=== PATIENT | female | born 1990 | race Caucasian/White ===

== ENCOUNTER → 2016-12-28 | Outpatient (CLI) | payer OTHER ==
[~2016-12-28] MED LIST: PRENTAB26 PO
[2016-12-28 18:21] LABS: BASO % 0.2 %; BASO ABS # 0.02 K/uL (0-0.2); COMPLETE YES; EOS % 1.3 %; HEMATOCRIT 41.2 % (37-47); IG% 0.2 %; LYMPH ABS # 2.86 K/uL (1.2-3.4); MEAN CELL VOLUME 88.2 fL (80-100); MEAN CORPUSCULAR HEMOGLOBIN 30.8 pg (25-34); MEAN PLATELET VOLUME 10.7 fL (7.4-10.4); NEUT % 62.3 %; PLATELET COUNT 248 K/uL (130-400); RED BLOOD COUNT 4.67 M/uL (4.2-5.4); WHITE BLOOD COUNT 9.86 K/uL (4.8-10.8)
[2016-12-28 19:23] LABS: URINE APPEARANCE CLEAR (CLEAR); URINE BILIRUBIN NEG (NEG); URINE COLOR YELLOW; URINE EPITHELIAL CELL AUTO >30 /lpf (0-5); URINE NITRITE NEG (NEG); UROBILINOGEN NEG (NEG)
[2016-12-28 19:24] LABS: MANUAL MICROSCOPIC REQUIRED? NO; REVIEW REQ? NO
[2017-01-06 15:59] LABS: CHLAMYDIA TRACH RNA*** NOT DETECTED (NOT DETECTED); GC (NEIS GONORRHOEAE)RNA** NOT DETECTED (NOT DETECTED)
== END ==
LOC: C.LAB 17:38
PROVIDERS: ATTEND Obstetrics & Gynecology
DX: Z34.81 Encounter for supervision of other normal pregnancy, first trimester (principal)

== ENCOUNTER → 2016-12-28 | Outpatient (CLI) | payer OTHER | LOC: C.PAPS 08:39 | PROVIDERS: ATTEND Obstetrics & Gynecology | DX: Z12.4 Encounter for screening for malignant neoplasm of cervix (principal) ==

== ENCOUNTER → 2017-02-24 | Outpatient (CLI) | payer OTHER ==
[2017-02-24 17:07] LABS: PATIENT HEIGHT 162.6 cm
[2017-02-24 17:14] LABS: GLUCOLA DOSE 50 Grams
[2017-02-24 18:44] LABS: GTGD 50 Grams
[2017-02-24 22:55] LABS: CREATININE 0.53 mg/dl (0.6-1.2)
== END | disposition home or self-care (01) ==
LOC: C.LAB1850 16:50
PROVIDERS: ATTEND Obstetrics & Gynecology
DX: Z34.82 Encounter for supervision of other normal pregnancy, second trimester (principal); Z87.59 Personal history of other complications of pregnancy, childbirth and the puerperium

== ENCOUNTER → 2017-03-01 | Outpatient (CLI) | payer OTHER | END | disposition home or self-care (01) | LOC: C.LAB1850 07:30 | PROVIDERS: ATTEND Obstetrics & Gynecology | DX: O28.9 Unspecified abnormal findings on antenatal screening of mother (principal) ==

== ENCOUNTER → 2017-05-17 | Outpatient (CLI) | payer OTHER ==
[2017-05-17 09:37] LABS: HEMATOCRIT 40.4 % (37-47)
[2017-05-17 12:48] LABS: URINE APPEARANCE CLEAR (CLEAR); URINE BILIRUBIN NEG (NEG); URINE COLOR YELLOW; URINE EPITHELIAL CELL AUTO >30 /lpf (0-5); URINE NITRITE NEG (NEG); URINE PH 6.5 (4.5-7.5); URINE SPECIFIC GRAVITY 1.013 (1.000-1.030); UROBILINOGEN NEG (NEG)
[2017-05-17 12:54] LABS: MANUAL MICROSCOPIC REQUIRED? NO; REVIEW REQ? NO
== END | disposition home or self-care (01) ==
LOC: C.LAB1850 07:33
PROVIDERS: ATTEND Obstetrics & Gynecology
DX: Z34.83 Encounter for supervision of other normal pregnancy, third trimester (principal)

== ENCOUNTER → 2017-05-31 | Outpatient (CLI) | payer OTHER ==
[2017-05-31 18:42] LABS: URINE APPEARANCE CLEAR (CLEAR); URINE BILIRUBIN NEG (NEG); URINE COLOR YELLOW; URINE EPITHELIAL CELL AUTO 20-30 /lpf (0-5); URINE NITRITE POS (NEG); URINE SPECIFIC GRAVITY 1.015 (1.000-1.030); UROBILINOGEN NEG (NEG)
[2017-05-31 18:48] LABS: MANUAL MICROSCOPIC REQUIRED? NO; REVIEW REQ? NO
== END | disposition home or self-care (01) ==
LOC: C.LABSPEC 17:31
PROVIDERS: ATTEND Obstetrics & Gynecology
DX: Z34.82 Encounter for supervision of other normal pregnancy, second trimester (principal)

== ENCOUNTER → 2017-06-09 | Outpatient (CLI) | payer OTHER ==
[2017-06-09 11:28] LABS: URINE APPEARANCE CLOUDY (CLEAR); URINE BILIRUBIN NEG (NEG); URINE COLOR YELLOW; URINE EPITHELIAL CELL AUTO >30 /lpf (0-5); URINE NITRITE NEG (NEG); URINE PH 8.5 (4.5-7.5); URINE SPECIFIC GRAVITY 1.016 (1.000-1.030); UROBILINOGEN NEG (NEG)
[2017-06-09 11:34] LABS: MANUAL MICROSCOPIC REQUIRED? NO; REVIEW REQ? YES
== END | disposition home or self-care (01) ==
LOC: C.LABSPEC 11:08
PROVIDERS: ATTEND Obstetrics & Gynecology
DX: Z34.83 Encounter for supervision of other normal pregnancy, third trimester (principal); B37.2 Candidiasis of skin and nail

== ENCOUNTER → 2017-06-16 | Outpatient (CLI) | payer OTHER ==
[2017-06-16 11:41] LABS: URINE APPEARANCE CLEAR (CLEAR); URINE BILIRUBIN NEG (NEG); URINE COLOR YELLOW; URINE EPITHELIAL CELL AUTO >30 /lpf (0-5); URINE NITRITE NEG (NEG); URINE PH 7.5 (4.5-7.5); URINE SPECIFIC GRAVITY 1.014 (1.000-1.030); UROBILINOGEN NEG (NEG)
[2017-06-16 11:45] LABS: MANUAL MICROSCOPIC REQUIRED? NO; REVIEW REQ? NO
== END | disposition home or self-care (01) ==
LOC: C.LABSPEC 11:06
PROVIDERS: ATTEND Obstetrics & Gynecology
DX: Z34.83 Encounter for supervision of other normal pregnancy, third trimester (principal)

== ENCOUNTER → 2017-07-14 | Outpatient (CLI) | payer OTHER | END | disposition home or self-care (01) | LOC: C.LABSPEC 09:44 | PROVIDERS: ATTEND Obstetrics & Gynecology | DX: Z34.83 Encounter for supervision of other normal pregnancy, third trimester (principal) ==

== ENCOUNTER → 2017-07-22 | Outpatient (CLI) | payer OTHER ==
[2017-07-22 12:09] LABS: BASO % 0.1 %; BASO ABS # 0.01 K/uL (0-0.2); COMPLETE YES; EOS % 0.6 %; HEMATOCRIT 39.4 % (37-47); IG% 0.3 %; LYMPH % 21.3 %; LYMPH ABS # 1.84 K/uL (1.2-3.4); MEAN CELL VOLUME 86.4 fL (80-100); MEAN CORPUSCULAR HEMOGLOBIN 28.7 pg (25-34); MEAN CORPUSCULAR HGB CONC 33.2 g/dl (32-36); MEAN PLATELET VOLUME 12.7 fL (7.4-10.4); MONO % 9.3 %; NEUT % 68.4 %; PLATELET COUNT 183 K/uL (130-400); RED BLOOD COUNT 4.56 M/uL (4.2-5.4); WHITE BLOOD COUNT 8.63 K/uL (4.8-10.8)
[2017-07-22 12:14] LABS: URINE TOTAL PROTEIN 9.3 mg/dl (0-11.9)
[2017-07-22 12:21] LABS: ALT/SGPT 22 U/L (12-78); AST/SGOT 27 U/L (15-37); CREATININE 0.57 mg/dl (0.60-1.20); URIC ACID 7.6 mg/dl (2.6-7.2)
== END | disposition home or self-care (01) ==
LOC: C.LAB1850 10:05
PROVIDERS: ATTEND Obstetrics & Gynecology
DX: Z87.59 Personal history of other complications of pregnancy, childbirth and the puerperium (principal)

== ENCOUNTER 2017-08-09 23:09 | Inpatient (IN) | payer OTHER ==
[~2017-08-09] VITALS: Ht 162.6 cm; Wt 116.4 kg
[2017-08-10] MEDS ORDERED: LACTATED RINGER'S 1000ML 1,000 ML IV PRN (00:09)
[2017-08-10] MEDS ORDERED: LACTATED RINGER'S 1000ML 500 ML IV PRN ×2 (00:09→02:26)
[2017-08-10] MEDS ORDERED: OXYTOCIN 30 UNITS/500ML NSS IV PRN ×2 (00:15→07:45)
[2017-08-10 00:32] LABS: HEMATOCRIT 37.9 % (37-47); MEAN CELL VOLUME 85.6 fL (80-100); MEAN CORPUSCULAR HEMOGLOBIN 30.2 pg (25-34); MEAN CORPUSCULAR HGB CONC 35.4 g/dl (32-36); MEAN PLATELET VOLUME 12.2 fL (7.4-10.4); PLATELET COUNT 169 K/uL (130-400); RED BLOOD COUNT 4.43 M/uL (4.2-5.4); WHITE BLOOD COUNT 10.31 K/uL (4.8-10.8)
[2017-08-10 00:47] VITALS: Ht 162.6 cm; Wt 116.4 kg
[2017-08-10 01:30] LABS: ALT/SGPT 19 U/L (12-78); AST/SGOT 21 U/L (15-37); BLOOD UREA NITROGEN 10 mg/dl (7-18); CALCIUM 8.6 mg/dl (8.5-10.1); CARBON DIOXIDE 22 mmol/L (21-32); CHLORIDE 106 mmol/L (98-107); CREATININE 0.54 mg/dl (0.60-1.20); GLUCOSE 83 mg/dl (70-99); SODIUM 137 mmol/L (136-145)
[2017-08-10 01:33] LABS: ALB/GLOB RATIO 0.7 (0.9-2); ALKALINE PHOSPHATASE 237 U/L (45-117)
[2017-08-10] MEDS ORDERED: BUPIVACAINE 0.25% 30 ML VIAL ONE (01:41)
[2017-08-10] MEDS ORDERED: EpHEDrine SULFATE INJ 50 MG/ML AMP ONE (01:42)
[2017-08-10] MEDS ORDERED: FENTANYL CITRATE INJ 50 MCG/1 ML 2 ML VIAL ONE (01:42)
[2017-08-10] MEDS ORDERED: FENTANYL 2MCG/ML ROPIV 1.25MG/ML 100ML BAG EPI ONE (01:42)
[2017-08-10] MEDS: LACTATED RINGER'S 1000ML 1,000 ML IV SCH ×2 (02:21→06:16)
[2017-08-10] MEDS ORDERED: NALOXONE HCL INJ 1 MG in SODIUM CHLORIDE 0.9% 1000ML 1,000 ML IV PRN (02:26)
[2017-08-10] MEDS ORDERED: DiphenhydrAMINE HCL 50 MG/ML VIAL IV PRN (02:30)
[2017-08-10] MEDS ORDERED: FENTANYL 2MCG/ML ROPIV 1.25MG/ML 100ML BAG EPI PRN (02:30)
[2017-08-10] MEDS ORDERED: NALBUPHINE HCL INJ 10 MG/ML AMP IV PRN (02:30)
[2017-08-10] MEDS ORDERED: ONDANSETRON INJ 2 MG/ML 2 ML VIAL IV PRN (02:30)
[2017-08-10] MEDS ORDERED: EpHEDrine SULFATE INJ 50 MG/ML AMP IV PRN (02:30)
[2017-08-10] MEDS ORDERED: NALOXONE HCL INJ 0.4 MG/1 ML VIAL/CARP IV PRN (02:30)
--- NOTE | 2017-08-10 07:44 | Medical Student: [facility] ---
Medical Student Delivery Note Pre-op Dx: Term IUP at 40-5, spontaneous onset of labor Post-op Dx: Same Procedure: epidural, Pitocin augmentation, Surgeon: Dr. Albarado Anesthesia: epidural EBL: 250cc Procedure: Pt is a [id number] who presented to labor and delivery in active labor at 40-4. She underwent epidural anesthesia and Pitocin augmentation. Pt progressed to 8/100/-2. The second stage of labor continued for a total of 10min until the delivery of a viable male infant in an occiput anterior position. There was no nuchal cord. The posterior shoulder was delivered and then the rest of the infant was delivered without difficulty. The nose and mouth were bulb suctioned. The was placed on the maternal abdomen and the cord was clamped and cut. Cord blood sample was collected. The placenta was delivered S/I/3VC. Fundus was firm and lochia was minimal. Mother and infant were doing well at the end of the delivery. Apgars 8/9.
[2017-08-10] MEDS ORDERED: HYDROCORTISONE ACETATE 25 MG SUPP PR PRN (07:45)
[2017-08-10] MEDS ORDERED: ACETAMINOPHEN/CODEINE 300/30MG TAB PO PRN (07:45)
[2017-08-10] MEDS ORDERED: LANOLIN OINT EXT PRN ×2 (07:45)
[2017-08-10] MEDS ORDERED: SUPERCREAM 0.870 % 15GM JAR EXT PRN (07:45)
--- NOTE | 2017-08-10 08:11 | DELIVERY SUMMARY ---
DATE OF OPERATION: 08/10/2017 PREDELIVERY DIAGNOSES: 1. A 27-year-old G2, P1-0-0-1 at 40 weeks 5 days. 2. Spontaneous rupture of membranes. 3. History of gestational hypertension in prior . POSTDELIVERY DIAGNOSES: 1. A 27-year-old G2, P1-0-0-1 at 40 weeks 5 days. 2. Spontaneous rupture of membranes. 3. History of gestational hypertension in prior . PROCEDURE: Spontaneous vaginal delivery. ANESTHESIA: Epidural. ESTIMATED BLOOD LOSS: 300 mL. FINDINGS: Viable male , Apgars 8 and 9, weight pending. Please see nursery records. DESCRIPTION OF DELIVERY: The patient progressed to complete with epidural anesthesia. She progressed quickly from 8 to 9 cm and then quickly progressed again from 8 cm to complete. During this time, heart rate showed moderate variability with accelerations and early decelerations. There were 2 episodes where heart rate dropped into the 90s and then it was difficulty to trace baby, however this heart rate did come back to baseline and at this point, the patient was complete, so we began to push. She then spontaneously vaginally delivered a viable male from the cephalic presentation with the head in right occiput anterior position. The head delivered, the anterior shoulder did not deliver immediately so we placed the patient in McRobert's position. At this point, the posterior shoulder was already delivering and the anterior shoulder delivered spontaneously. The body delivered, the baby was placed on mother's abdomen. The cord was doubly clamped and cut using delayed cord clamping technique. A spontaneous cry was heard. The cord segment was retained in the event that we needed cord gases. The placenta was then delivered spontaneously intact with a 3-vessel cord. The uterus became firm. Pitocin was given. The uterus and vagina were swept of all clots and debris. The cervix, vagina and perineum were inspected and no lacerations were noted. Excellent hemostasis was observed. The mother and baby tolerated delivery well and are in the room recovering in stable and good condition. Instrument and sponge counts were correct x2 at the conclusion of this delivery. I attest to the content of the Intraoperative Record and any orders documented therein. Any exception s are noted below.
[2017-08-10] MEDS ORDERED: BUTORPHANOL TARTRATE 1 MG/ML VIAL ONE (09:52)
[2017-08-10] MEDS ORDERED: CARBOPROST TROMETHAMINE 250 MCG/ML AMP ONE (10:04)
[2017-08-10] MEDS ORDERED: MISOPROSTOL 200 MCG TAB ONE (10:11)
[2017-08-10] MEDS ORDERED: MISOPROSTOL 100 MCG TAB PR SCH (10:15)
--- NOTE | 2017-08-10 10:16 | Progress Note ---
Progress Note Date of Service Aug 10, 2017. Progress Note CTSP due to heavy vaginal bleeding. Patient a few hours into recovery from , no tears now with what nurse notes as heavy vaginal bleeding. Patient notes was up to shower and has seen a continual flow of blood. She came back to bed and soaked several chux by time I was called. Looking at perineum, there was adherent clot and bright red blood. Patient positioned for bedside exam in lithotomy. Inspection of perineum, vaginal and sulci with no evidence of tears. Clot teased away from os and ring forcep to anterior lip. More clot noted at JANELL and then ring forcep removed and hand placed in vagina into uterine cavity which was well contracted at fundus but JANELL easily entered and about 50cc clotted blood removed. No evidence of retained POCs. Uterus swept once more with no further clot or products. 800mcg rectal cytotec given. IV already infusing with dilute pitocin. 2nd iv site requested. Weighing of blood loss requested. T&S initiated. Pulse about 90-105 but nursing unable to get BP cuff working and therefore with remaining trickle and no data on BP, T&C initiated, CBC ordered stat. Patient informed of layla on and circumstances. She did not tolerate exploration at bedside and stadol 1mg offered and given. Fundus was always firm about [address] that way through the evaluation. Vaginal and cx visualized on 2 separate occasions subsequent to initial exploration and no significant increased bleeding seen. 200cc EBL on chux during my evaluation, 300cc EBL for delivery per delivering MD and 300 estimated from chux prior to my arrival for total 800cc EBL thus far. Will continue to monitor closely. Labs pending.
--- NOTE | 2017-08-10 10:26 | Anesthesia Procedure Note ---
Anesthesia Epidural Removal Nt Date & Time Aug 10, 2017 at 10:25 Vital Signs Pain Intensity: 2 Notes Mental Status: alert / awake / arousable, participated in evaluation Nausea / Vomiting: adequately controlled Pain: adequately controlled Airway Patency, RR, SpO2: stable & adequate BP & HR: stable & adequate Hydration State: stable & adequate Neuraxial Anesthesia: was administered Anesthetic Complications: no major complications apparent, pt satisfied with anesthetic care Epidural: removed without complications, with tip intact
[2017-08-10 10:43] LABS: HEMATOCRIT 39.3 % (37-47); MEAN CELL VOLUME 85.6 fL (80-100); MEAN CORPUSCULAR HEMOGLOBIN 28.8 pg (25-34); MEAN CORPUSCULAR HGB CONC 33.6 g/dl (32-36); PLATELET COUNT 115 K/uL (130-400); RED BLOOD COUNT 4.59 M/uL (4.2-5.4); WHITE BLOOD COUNT 14.67 K/uL (4.8-10.8)
[2017-08-10 10:44] LABS: PLT ESTIMATE DECREASED
[2017-08-10] MEDS: IBUPROFEN 600 MG TAB PO PRN ×3 (11:33→19:56)
[2017-08-10] MEDS ORDERED: OXYTOCIN INJ 20 UNITS in LACTATED RINGER'S 1000ML 1,000 ML IV SCH (12:00)
[2017-08-10 13:15] VITALS: BP 142/90; PULSE 95; TEMP 36.4; O2SAT 98
[2017-08-10] MEDS: PRENATAL VITAMIN TAB PO SCH (14:36)
[2017-08-10] MEDS: FERROUS SULFATE 325 MG TAB PO SCH (14:36)
[2017-08-10] MEDS: DOCUSATE SODIUM 100 MG CAP PO SCH ×2 (14:36→19:56)
[2017-08-10 15:30] VITALS: BP 141/90; PULSE 89; TEMP 36.6
[2017-08-10 19:00] VITALS: BP 128/84; PULSE 93; TEMP 36.8
[2017-08-10] MEDS: ACETAMINOPHEN/CODEINE 300/30MG TAB PO PRN (21:04)
[2017-08-10 23:55] VITALS: BP 128/89; PULSE 89; TEMP 36.7
[2017-08-11] MEDS: IBUPROFEN 600 MG TAB PO PRN ×3 (00:30→11:28)
[2017-08-11 03:30] VITALS: BP 113/79; PULSE 85; TEMP 36.7
[2017-08-11] MEDS: ACETAMINOPHEN/CODEINE 300/30MG TAB PO PRN (03:59)
[2017-08-11 06:32] LABS: HEMATOCRIT 35.3 % (37-47)
--- NOTE | 2017-08-11 06:59 | Progress Note ---
Subjective Aug 11, 2017. Subjective conversation w/ patient (pt doing well, denies lightheadedness, syncope or brown out, or palpitations. ), physical exam, chart review, lab review Ambulation: ambulating normally Voiding: no voiding problems Passing Gas: Yes Diet Tolerance: Regular Diet Lochia: Moderate Feeding Type: Breast Feeding Pain: controlled Review of Systems Respiratory: No shortness of breath Cardiac: No chest pain, No palpitations Female : No dysuria Objective Vital Signs Date Time Temp Pulse Resp B/P (MAP) Pulse Ox O2 Delivery O2 Flow Rate FiO2 08/11/17 03:30 36.7 85 16 113/79 (90) Room Air 08/10/17 23:55 36.7 89 18 128/89 (102) Room Air 08/10/17 23:55 Room Air 08/10/17 19:00 36.8 93 20 128/84 (99) Room Air 08/10/17 15:30 Room Air 08/10/17 15:30 36.6 89 20 141/90 (107) Room Air 08/10/17 13:15 36.4 95 18 142/90 (107) 98 Room Air Physical Exam General Appearance: WELL-APPEARING, WD/WN, NO APPARENT DISTRESS Respiratory/Chest: lungs clear, normal breath sounds, no respiratory distress Cardiovascular: regular rate, rhythm, no gallop Abdomen: normal bowel sounds, soft Fundus: Firm, Tender (appropriately tender), Relation to Umbilicus (1 below U) Extremities: non-tender, normal inspection Laboratory Results Last 24 Hours Test 08/10/17 10:12 08/11/17 06:18 White Blood Count 14.67 K/uL Red Blood Count 4.59 M/uL Hemoglobin 13.2 g/dL 11.5 g/dL Hematocrit 39.3 % 35.3 % Mean Corpuscular Volume 85.6 fL Mean Corpuscular Hemoglobin 28.8 pg Mean Corpuscular Hemoglobin Concent 33.6 g/dl RDW Standard Deviation 43.5 fL RDW Coefficient of Variation 14.1 % Platelet Count 115 K/uL Mean Platelet Volume 12.0 fL Platelet Estimate DECREASED Assessment and Plan Post- Day#: 1 Continue Routine Care: 27 yof (now 4) s/p 08/10 at 0730, post course complicated by post hemorrhage (total EBL 800 mL). A- / RI/ GBS- Hgb reviewed - 13.4 on admission, 13.2 post pph, today's AM is 11.5. Pt doing well clinically. Denies s/s of hemorrhage. Desires to go home later today if possible, discussed that we will monitor her today pending lab work and possibly later today for discharge. Pt counselled on discharge instructions , answered all questions. Continue routine post care, monitor lochia, encourage ambulation, support, control pain with motrin/tylenol. ALICE GOTTI FMR PGY 1. Resident Physician Supervision Note: I was present with Dr. Gotti during the history and exam. I discussed the case with the resident and agree with the findings and plan as documented in the note. Any exceptions or clarifications are listed here: Doing well, wants d /c home later today. instructions reviewed. f/u 6wks pp check. reviewed circumstances of pph, she denies questions. Documented By: Dali Jin Resident Tracking Resident Involvement: Resident Care Provided Care Provided: OB Delivery
--- NOTE | 2017-08-11 07:00 | Discharge Instructions ---
Discharge Instructions Date of Service Aug 11, 2017. Admission Reason for Admission: [facility] Discharge Discharge Diagnosis / Problem: Spontaneous Vaginal Delivery Discharge Goals Goal(s): Routine recovery after delivery Medications Continue Dispensed Medications: supercream, dermaplast, tucks, lansinoh Activity Recommendations Activity Limitations: per Instructions/Follow-up section . Instructions / Follow-Up Instructions / Follow-Up ACTIVITY RECOMMENDATIONS: * Gradual return to full activity over the next 2-3 weeks. * No lifting - nothing heavier than baby over the next 2-3 weeks. * Do not engage in vigorous exercise, sexual activity or sports until cleared by your physician. * Do not drive or operate any motorized equipment until cleared by your physician. * You may shower/bathe daily. MEDICATIONS: For discomfort or pain, you may use Acetaminophen (Tylenol), Ibuprofen (Advil), or Naproxen (Aleve) following the package directions. For constipation you may use Colace following the package directions. BREAST CARE: If you are not breast feeding: * Wear a supportive bra 24 hours a day for one to two weeks. * Avoid stimulating your breasts and nipples as much as possible during the first few weeks after delivery. * When taking a shower, have the warm water hit your back, not breasts. * When your breasts feel full, apply ice packs. Usually three to four times a day helps ease the discomfort. * Take a mild pain medication (Tylenol / Motrin) when you are uncomfortable. If breast feeding: * Use breast milk to lubricate nipples. Lansinoh cream may be used for sore nipples. You do not need to remove cream prior to breast feeding. If using a different brand of cream, check the label for directions regarding removal of cream prior to nursing. * Wear a supportive bra. * If having problems with breasts or breast feeding, call a production support consultant or your health care provider. EPISIOTOMY CARE: After delivery, if you have an episiotomy (stitches), the following steps will ease discomfort and aid healing. * For the first 24 hours after delivery, place ice packs next to your episiotomy to help reduce swelling. * After the first 24 hour-period, sitz baths, either portable or in the tub, are suggested. A shower with a shower arm sprayed over the episiotomy may be comforting. * Radha care should be done after each voiding and bowel movement. Squirt warm water from a plastic bottle over the perineum (region of the body between the anus and urinary opening) and pat dry. * Use Dermoplast to ease discomfort. Shake container. Dix directly over the episiotomy. Place a Tucks on a clean sanitary pad next to your episiotomy. SPECIAL CARE INSTRUCTIONS: When you are discharged from the hospital, it is important for you to follow the instructions listed below: * During the first week at home, you should be able to care for yourself and your baby. In addition, the usual light household activities are encouraged. * Limit your activities to the way you feel. Do not try to clean the house or move furniture. Be sensible. * If you actively engage in sports and have done so up until the time of your delivery, you may resume these activities as soon as you feel able. This may take up to one month or even longer. Use good judgment. * Continue to take your vitamins for at least six weeks after the of your baby. * Your diet need not be limited unless you were on a special diet before your delivery. Breast-feeding mothers need around 2500 calories per day and at least 64-80 ounces of fluid per day (8 to 10 glasses). * You should eat foods from the four major food groups. Crash diets or fad diets are to be avoided. Eating lean meats, fresh fruits and vegetables, low-fat dairy products, high fiber foods and a regular exercise program, will help you get back to your pre- weight without putting your health at risk. * Constipation is sometimes a problem after delivery. Take a mild laxative as needed. If breast feeding, Milk of Magnesia is acceptable to use. You may use a suppository or Fleets enema if no episiotomy. * A daily shower or tub bath is suggested. Be sure to thoroughly and gently dry the perineum. * A bloody vaginal discharge will usually continue until around four weeks post . A small amount of bleeding may continue for as long as six weeks. Vaginal discharge changes from the bright red bleeding after delivery to pink then brownish and finally yellowish-pink before becoming white and disappearing. * Bleeding may increase with activity. Your first period may come in 4-8 weeks. If you are breast feeding, your period may be delayed even longer. * [place] (sex) can begin whenever both you and your partner feel comfortable and do not have any form of genital infection. It is recommended that you wait at least six weeks for internal and external healing to occur. If you have questions, please talk to your health care practitioner. A condom should be used to prevent infection and . * Foreplay, gentle intercourse and lubrication is very important the first several times to prevent pain. A water-based lubricant such as K-Y jelly or Astroglide may be used. * If you have RH negative blood and your baby is RH positive, you will receive RHOGAM by injection prior to discharge. The nurse will give you a card to keep with you that has the date and place that you received RHOGAM after delivery. * During your care, you had a Rubella screen done to check for the presence of rubella antibodies in your blood. If your test was negative, you will receive a Rubella vaccine prior to discharge. This vaccine may cause a fever, soreness at the injection site and flu-like symptoms. If these symptoms persist, notify your health care practitioner. is not advised for one month after a Rubella vaccine. * Verbalizes understanding of car seat law as reviewed with patient nursing. * Car Seat hand-out given and reviewed with patient by nursing. * Shaken baby information reviewed with patient by nursing. Call you doctor if: * Heavy bleeding (saturating several pads an hour) or passing clots the size of your fist. * A fever >101 degrees F (38.3 degrees C) on two occasions four hours apart and /or chills. * Unusual pain in the pelvic or vaginal areas. * "Baby Blues" lasting longer than two weeks. If you have any questions or concerns, call your health care practitioner at . FOLLOW UP VISIT: * Please call the office at to schedule a 6 week examination. It is important you keep this appointment. It is important for you to make arrangements for either yearly or twice yearly check-ups thereafter. Current Hospital Diet Patient's current hospital diet: Regular OB Diet Discharge Diet Recommended Diet: Regular OB Diet Pending Studies Studies pending at discharge: no Medical Emergencies . Who to Call and When: Medical Emergencies: If at any time you feel your situation is an emergency, please call 911 immediately. . Non-Emergent Contact Non-Emergency issues call your: Primary Care Provider . . "Provider Documentation" section prepared by Keira Gotti. . VTE Core Measure Inpt VTE Proph given/why not?: Treatment not indicated
[2017-08-11] MEDS: FERROUS SULFATE 325 MG TAB PO SCH (08:04)
[2017-08-11] MEDS: DOCUSATE SODIUM 100 MG CAP PO SCH (08:04)
[2017-08-11] MEDS: PRENATAL VITAMIN TAB PO SCH (08:04)
[2017-08-11 08:05] VITALS: BP 122/85; PULSE 87; TEMP 36.6; O2SAT 97
[2017-08-11 15:21] VITALS: BP_DIAS 85; PULSE 87; TEMP 36.6
[2017-08-11 16:15] VITALS: BP 126/88; PULSE 82; TEMP 36.7; O2SAT 97; O2SAT 98
[2017-08-11] MEDS ORDERED: BISACODYL 5 MG TABEC PO SCH (20:00)
== END 2017-08-11 17:36 | disposition home or self-care (01) | DRG 774 ==
LOC: C.LD 23:09 → C.OPB 23:09 → C.LD 08-10 00:11 → C.OBG 08-10 13:22
PROVIDERS: ADMIT Obstetrics & Gynecology; ATTEND Obstetrics & Gynecology
PROC: 10E0XZZ Delivery of Products of Conception, External Approach (ICD-10-PCS; principal; 2017-08-10)
PROC: 0UC97ZZ Extirpation of Matter from Uterus, Via Natural or Artificial Opening (ICD-10-PCS; 2017-08-10)
PROC: 0UCG7ZZ Extirpation of Matter from Vagina, Via Natural or Artificial Opening (ICD-10-PCS; 2017-08-10)
DX: O48.0 Post-term pregnancy (principal); O72.2 Delayed and secondary postpartum hemorrhage; Z68.41 Body mass index [BMI] 40.0-44.9, adult; O99.214 Obesity complicating childbirth; O76 Abnormality in fetal heart rate and rhythm complicating labor and delivery; E66.9 Obesity, unspecified; Z3A.40 40 weeks gestation of pregnancy; Z37.0 Single live birth